=== PATIENT | female | born 1945 | race Caucasian/White ===

== ENCOUNTER → 2016-10-16 | Outpatient (REF) | payer MEDICARE, OTHER | END | disposition home or self-care (01) | LOC: M LAB REF 16:42 | PROVIDERS: ATTEND Internal Medicine | DX: R56.9 Unspecified convulsions (principal); R41.0 Disorientation, unspecified ==

== ENCOUNTER → 2016-10-17 | Outpatient (REF) | payer MEDICARE, OTHER ==
[2016-10-17 19:47] LABS: BASO % 0.6 % (0.0-1.0); EOS # 0.1 K/mm3 (0.0-0.50); EOS % 1.8 % (0.0-3.0); LARGE UNSTAINED CELL # 0.2 K/mm3 (0.0-0.4); LARGE UNSTAINED CELL % 2.4 % (0.0-4.0); LYMPH # 1.8 K/mm3 (1.5-4.5); LYMPH % 26.6 % (24.0-44.0); MEAN CORPUSCULAR HGB CONC 31.9 g/dl (32.0-36.5); MEAN CORPUSCULAR VOLUME 100.3 fl (80.0-96.0); MONO # 0.4 K/mm3 (0.0-0.8); MONO % 7.1 % (0.0-5.0); NEUTROPHILS # 3.8 K/mm3 (1.8-7.7); NEUTROPHILS % 61.4 % (36.0-66.0); PLATELET COUNT, AUTOMATED 174 k/mm3 (150-450); RED CELL DISTRIBUTION WIDTH 14.1 % (11.5-14.5); WHITE BLOOD COUNT 6.2 K/mm3 (4.0-10.0)
[2016-10-17 20:07] LABS: FOLATE > 24.0 NG/ML (>5.4); VITAMIN B12 LEVEL 409 PG/ML (247-911)
[2016-10-17 20:18] LABS: ERYTHROCYTE SEDIMENTATION RATE 45 mm/hr (0-30)
[2016-10-22 00:06] LABS: VITAMIN E LEVEL 12.6 mg/L (6.5-21.5)
== END ==
LOC: M LABNEURO 14:48
PROVIDERS: ATTEND Physician Assistant Medical
DX: R51 Headache (principal); R41.3 Other amnesia; R73.02 Impaired glucose tolerance (oral)

== ENCOUNTER → 2016-11-13 | Outpatient (REF) | payer MEDICARE, OTHER | LOC: M LAB REF 16:35 | PROVIDERS: ATTEND Nurse Practitioner Family | DX: Z01.89 Encounter for other specified special examinations (principal) ==

== ENCOUNTER → 2016-12-18 | Outpatient (REF) | payer MEDICARE, OTHER | LOC: M LAB REF 16:41 | PROVIDERS: ATTEND Nurse Practitioner Family | DX: R35.0 Frequency of micturition (principal) ==

== ENCOUNTER 2017-03-12 11:22 | Emergency (ER) | payer MEDICARE, BC, OTHER ==
[~2017-03-12] VITALS: Ht 157.5 cm; Wt 91.3 kg
[2017-03-12] MEDS ORDERED: ASPI81TA85 PO (11:42)
[2017-03-12] MEDS ORDERED: URSO300C3 (11:42)
[2017-03-12] MEDS ORDERED: TRAD5TAB (11:42)
[2017-03-12] MEDS ORDERED: METF500T13 (11:42)
[2017-03-12] MEDS ORDERED: DIVA500T3 (11:42)
[2017-03-12] MEDS ORDERED: OXYB10TA (11:42)
[2017-03-12] MEDS ORDERED: ATOR40TA75 (11:42)
[2017-03-12] MEDS ORDERED: OMEP20CA3 (11:42)
[2017-03-12] MEDS ORDERED: ASPIRIN 81 MG CHEW TABLET PO ONE ×2 (12:15→13:00)
[2017-03-12 13:06] LABS: BASO % 0.6 % (0.0-1.0); EOS # 0.2 K/mm3 (0.0-0.50); LARGE UNSTAINED CELL # 0.1 K/mm3 (0.0-0.4); LARGE UNSTAINED CELL % 1.5 % (0.0-4.0); LYMPH # 1.6 K/mm3 (1.5-4.5); LYMPH % 22.8 % (24.0-44.0); MEAN CORPUSCULAR HEMOGLOBIN 33.6 pg (27.0-33.0); MEAN CORPUSCULAR VOLUME 98.8 fl (80.0-96.0); MONO # 0.4 K/mm3 (0.0-0.8); MONO % 5.8 % (0.0-5.0); NEUTROPHILS # 4.5 K/mm3 (1.8-7.7); NEUTROPHILS % 66.2 % (36.0-66.0); PLATELET COUNT, AUTOMATED 169 k/mm3 (150-450); RED CELL DISTRIBUTION WIDTH 14.3 % (11.5-14.5); WHITE BLOOD COUNT 6.8 K/mm3 (4.0-10.0)
[2017-03-12 13:29] LABS: ANION GAP 9 MEQ/L (8-16); BLOOD UREA NITROGEN 18 MG/DL (7-18); CALCIUM LEVEL 9.1 MG/DL (8.8-10.2); CARBON DIOXIDE LEVEL 25 MEQ/L (21-32); CHLORIDE LEVEL 107 MEQ/L (98-107); CREATININE FOR GFR 1.19 MG/DL (0.55-1.02); GLOMERULAR FILTRATION RATE 47.6 (>39); GLUCOSE, FASTING 152 MG/DL (83-110); POTASSIUM SERUM 4.1 MEQ/L (3.5-5.1); SODIUM LEVEL 141 MEQ/L (136-145)
[2017-03-12] MEDS ORDERED: ISOVUE-370 76% 100ML VIAL (Q9967) As Ordered ONE (13:33)
--- NOTE | 2017-03-12 13:35 | REP ---
CHEST, PORTABLE: Comparison 08/08/2016. There is no evidence of acute infiltrate. No pleural effusion is seen. The heart is normal in size. The mediastinal silhouette is unremarkable. The visualized osseous structures are intact. IMPRESSION: No acute pulmonary disease. Signed by Mohsen Randolph MD 03/12/2017 05:08 P
--- NOTE | 2017-03-12 14:11 | REP ---
CT PULMONARY ANGIOGRAM: With IV contrast. HISTORY: Shortness of breath, chest tightness, history of pituitary tumor Comparison chest CT study is from June 25, 2007 CONTRAST DOSE: 75 mL of Isovue [address] TECHNIQUE: Helical scanning is acquired and overlapping 1.5 mm and contiguous 3 mm axial images are reformatted. In addition, a 3D work station is deployed to generate thick slab maximum intensity projection images in sagittal and coronal imaging projections. CT PULMONARY ANGIOGRAPHIC FINDINGS: There is good opacification of the pulmonary arterial tree and there is no CT evidence to suggest pulmonary embolism. Maximal intensity projection images show no filling defect or vessel cutoff to suggest a pulmonary arterial thrombus. The thoracic aorta enhances homogeneously and is normal in contour. There is no evidence of dissection or aneurysm. No hilar or mediastinal mass or adenopathy is observed. The lung jarrett are clear except for a 5 mm stable noncalcified pulmonary nodule in the right middle lobe. This is unchanged when compared with the June 25, 2007 study and is felt to be benign. No other significant pulmonary opacity is seen. No bony lesion is seen. IMPRESSION: 1. No CT evidence of pulmonary embolism. 2. No active cardiopulmonary disease. Signed by Nando Gonzales MD 03/12/2017 03:51 P
[2017-03-12 14:14] VITALS: BP 147/64
--- NOTE | 2017-03-13 18:18 | ECGEPIP ---
Stationary ECG Study [facility] - ED Test Date: 2017-03-12 Pat Name: NORBERT TORRES Department: Room: - Gender: F [employer] Operator: anu : 1945 Requested By: Ricardo Sweet Order Number: [id number] Reading MD: Nadira Prather Measurements Intervals [place] Rate: 79 P: 43 NV: 163 QRS: -9 QRSD: 78 T: 29 QT: 350 QTc: 402 Interpretive Statements SINUS RHYTHM LOW QRS VOLTAGE IN PRECORDIAL LEADS PRWP SIMILAR 08/08/16 Electronically Signed On 03-13-2017 18:18:04 EDT by Nadira Prather
== END 2017-03-12 14:46 | disposition home or self-care (01) ==
LOC: M ED 11:22
DX: R07.9 Chest pain, unspecified (principal); R06.02 Shortness of breath; E11.9 Type 2 diabetes mellitus without complications; E78.4 Other hyperlipidemia; F03.90 Unspecified dementia, unspecified severity, without behavioral disturbance, psychotic disturbance, mood disturbance, and anxiety
CPT/HCPCS: 36415; 71010; 71275; 80048; 82550; 82553; 83880; 84484; 85025; 93005; 93041; 94760; 99285; Q9967

== ENCOUNTER → 2017-03-20 | Outpatient (REF) | payer MEDICARE, OTHER ==
[~2017-03-20] MED LIST: ASPI81TA85 PO; ATOR40TA75; DIVA500T3; METF500T13; OMEP20CA3; OXYB10TA; TRAD5TAB; URSO300C3
[2017-03-20 13:25] LABS: FOLATE > 24.0 NG/ML (>5.4); VITAMIN B12 LEVEL 759 PG/ML (247-911)
[2017-03-23 08:08] LABS: VITAMIN E LEVEL 19.3 mg/L (6.5-21.5)
== END ==
LOC: M LAB REF 12:32
PROVIDERS: ATTEND Nurse Practitioner Family
DX: G62.9 Polyneuropathy, unspecified (principal)

== ENCOUNTER → 2018-09-10 | Outpatient (REF) | payer MEDICARE, OTHER ==
[~2018-09-10] MED LIST changes: -DIVA500T3; +DIVA500T94
== END ==
LOC: M LAB REF 17:47
PROVIDERS: ATTEND Internal Medicine
DX: M31.6 Other giant cell arteritis (principal)

== ENCOUNTER → 2018-09-19 | Outpatient (REF) | payer MEDICARE, OTHER | LOC: M LAB REF 15:08 | PROVIDERS: ATTEND Surgery | DX: M31.6 Other giant cell arteritis (principal) ==

== ENCOUNTER 2021-01-28 15:04 | Emergency (ER) | payer MEDICARE, BC, OTHER ==
[~2021-01-28] VITALS: Ht 162.6 cm; Wt 88.6 kg
[~2021-01-28 15:04] MED LIST changes: -ASPI81TA85 PO; +ASPI81TA86 PO; +OMEP1CAP73; -OMEP20CA3; -OXYB10TA; +OXYB10TA23
[2021-01-28] MEDS ORDERED: GLIP10TA PO (15:18)
[2021-01-28] MEDS ORDERED: MYRB25TA PO (15:18)
[2021-01-28] MEDS ORDERED: MECL-86 PO (15:18)
--- NOTE | 2021-01-28 15:36 | REP ---
INDICATION: TRAUMA COMPARISON: 03/01/2016 TECHNIQUE: Axial noncontrast images from the skull base to the thoracic inlet with coronal reformations. This CT examination was performed using the following dose reduction techniques: Automated exposure control, adjustment of mA and/or kv according to the patient's size, and use of iterative reconstruction technique. FINDINGS: Postsurgical changes involving the right hemisphere including prior craniotomy/craniectomy and underlying frontotemporal encephalomalacia as well as age-related atrophy and microvascular ischemic changes again noted and essentially unchanged. Ventricles are symmetric. No acute intracranial hemorrhage, mass or mass effect identified. No acute extra-axial fluid collection. Calvarium is stable. Sinuses and mastoid air cells are clear. Right prosthetic globe. IMPRESSION: No change from prior examination. Atrophy and postsurgical changes. No acute intracranial pathology or trauma/injury appreciated. <Electronically signed by Tae Anderson > 01/28/21 [id number]
--- NOTE | 2021-01-28 15:37 | REP ---
INDICATION: TRAUMA COMPARISON: None. TECHNIQUE: Axial noncontrast images from the skull base to the thoracic inlet with coronal and sagittal re-formations This CT examination was performed using the following dose reduction techniques: Automated exposure control, adjustment of mA and/or kv according to the patient's size, and use of iterative reconstruction technique. FINDINGS: Reversal of normal lordosis with stable alignment noted along with moderate to advanced multilevel degenerative spondylosis. No acute fracture/compression injury or subluxation. Posterior elements and spinous processes are intact. Spinal canal is patent. Paravertebral soft tissues are normal. IMPRESSION: Moderate to advanced multilevel degenerative spondylosis. No acute fracture/compression injury or subluxation. <Electronically signed by Tae Anderson > 01/28/21 153
[2021-01-28] MEDS ORDERED: ACETAMINOPHEN 500 MG TAB PO ONE (16:40)
[2021-01-28] MEDS ORDERED: LIDOCAINE 4% CREAM 5GM (LMX4) TOP ONE (16:40)
--- NOTE | 2021-01-28 17:28 | REP ---
INDICATION: fall, pt tender COMPARISON: None. TECHNIQUE: AP and lateral views of the scapula. FINDINGS: Generalized age-related changes through the scapula and shoulder. No obvious acute fracture or dislocation identified. IMPRESSION: No obvious acute fracture or dislocation identified.. <Electronically signed by Tae Anderson > 01/28/21 [id number]
[2021-01-28] MEDS ORDERED: ANEC4CRE3 TOP (17:35)
[2021-01-28 17:59] VITALS: BP 147/72
== END 2021-01-28 18:03 | disposition home or self-care (01) ==
LOC: M ED 15:04
DX: S16.1XXA Strain of muscle, fascia and tendon at neck level, initial encounter (principal); S20.229A Contusion of unspecified back wall of thorax, initial encounter; W18.39XA Other fall on same level, initial encounter; Y92.018 Other place in single-family (private) house as the place of occurrence of the external cause; E11.9 Type 2 diabetes mellitus without complications; F03.90 Unspecified dementia, unspecified severity, without behavioral disturbance, psychotic disturbance, mood disturbance, and anxiety; D43.2 Neoplasm of uncertain behavior of brain, unspecified; Z79.899 Other long term (current) drug therapy; Z88.1 Allergy status to other antibiotic agents; Z88.2 Allergy status to sulfonamides; Z88.5 Allergy status to narcotic agent; Z88.8 Allergy status to other drugs, medicaments and biological substances; Z91.048 Other nonmedicinal substance allergy status

== ENCOUNTER → 2021-08-11 | Outpatient (CLI) | payer MEDICARE, BC, OTHER ==
[~2021-08-11] MED LIST changes: +ANEC4CRE3 TOP; +GLIP10TA PO; +MECL-86 PO; +MYRB25TA PO
--- NOTE | 2021-08-11 13:19 | REP ---
INDICATION: LOW BACK PAIN. COMPARISON: 03/22/2012. TECHNIQUE: Five views lumbosacral spine. FINDINGS: There is no compression fracture. There is minimal stable anterolisthesis of L4 on L5 which appears to be due to posterior facet arthropathy. There is normal lumbar lordosis. There is mild diffuse spurring. There is mild disc space narrowing and subchondral sclerosis at all levels. There is sclerosis and spurring at the posterior facet joints, particularly at the inferior aspect of the lumbar spine. Posterior elements are intact. Epidural catheter tubing is again noted on the right. IMPRESSION: Diffuse degenerative changes appears similar to the prior study. No fracture or dislocation. <Electronically signed by Mohsen Randolph > 08/11/21 [id number]
== END ==
LOC: M WUC 10:38
PROVIDERS: ATTEND Internal Medicine
DX: M54.50 Low back pain, unspecified (principal); M51.36 Other intervertebral disc degeneration, lumbar region

== ENCOUNTER → 2022-06-27 | Outpatient (CLI) | payer MEDICARE, BC, OTHER | LOC: M RAD 09:18 | PROVIDERS: ATTEND Psychiatry & Neurology Neurology | DX: R41.3 Other amnesia (principal) ==

== ENCOUNTER 2022-08-06 16:37 | Inpatient (IN) | payer MEDICARE, BC, OTHER ==
[~2022-08-06] VITALS: Ht 162.6 cm; Wt 86.5 kg
[~2022-08-06 16:37] MED LIST changes: -ATOR40TA75; +ATOR40TA75 PO; -TRAD5TAB; +TRAD5TAB PO; -URSO300C3; +URSO300C3 PO
[2022-08-06] MEDS ORDERED: hydrALAZINE 20MG/ML 1ML VIAL IV ONE (17:10)
[2022-08-06] MEDS ORDERED: ACETAMINOPHEN 650MG SUPP PR ONE (17:10)
[2022-08-06] MEDS ORDERED: NS 1,000 ML IV ONE (17:10)
[2022-08-06 17:34] LABS: BASO # 0.1 10^3/uL (0.0-0.2); BASO % 0.7 % (0.0-1.0); EOS # 0.1 10^3/uL (0.0-0.5); EOS % 0.7 % (0.0-3.0); HEMATOCRIT 44.2 % (36.0-47.0); HEMOGLOBIN 14.2 g/dl (12.0-15.5); LYMPH # 0.6 10^3/uL (1.5-5.0); LYMPH % 6.5 % (24.0-44.0); MEAN CORPUSCULAR HEMOGLOBIN 31.5 pg (27.0-33.0); MEAN CORPUSCULAR HGB CONC 32.1 g/dl (32.0-36.5); MONO # 1.1 10^3/uL (0.0-0.8); MONO % 10.6 % (2.0-8.0); PLATELET COUNT, AUTOMATED 267 10^3/uL (150-450); RED BLOOD COUNT 4.51 10^6/uL (4.00-5.40); WHITE BLOOD COUNT 9.9 10^3/uL (4.0-10.0)
[2022-08-06 17:36] LABS: VENOUS BASE EXCESS -3.6 (-2.0-2.0); VENOUS HCO3 24.3 MEQ/L (23.0-27.0); VENOUS O2 SATURATION 67.4 % (60.0-80.0); VENOUS PARTIAL PRESSURE CO2 54.9 mmHg (38.0-50.0); VENOUS PARTIAL PRESSURE O2 36.5 mmHg (30.0-50.0); VENOUS PH 7.264 UNITS (7.330-7.430); VENOUS STANDARD HCO3 20.8 MEQ/L
[2022-08-06 17:57] LABS: ETHYL ALCOHOL (ETHANOL) 0.003 % (0.000-0.010)
[2022-08-06 17:58] LABS: ACETAMINOPHEN LEVEL < 2.0 UG/ML (10.0-20.0); BILIRUBIN,DIRECT 0.2 MG/DL (<0.4); SALICYLATE LEVEL < 3.0 MG/DL (<30)
[2022-08-06 18:06] LABS: ALBUMIN 3.6 G/DL (3.2-5.2); ALKALINE PHOSPHATASE 280 U/L (46-116); ALT/SGPT 61 U/L (7.0-40); AST/SGOT 65 U/L (<34); BILIRUBIN,TOTAL 0.4 MG/DL (0.3-1.2); BLOOD UREA NITROGEN 28 MG/DL (9-23); CALCIUM LEVEL 10.1 MG/DL (8.3-10.6); CARBON DIOXIDE LEVEL 23 MMOL/L (20-31); CHLORIDE LEVEL 99 MMOL/L (98-107); CREATININE FOR GFR 1.68 MG/DL (0.55-1.30); GLOMERULAR FILTRATION RATE 31.5 (>39); GLUCOSE, FASTING 220 MG/DL (74-106); POTASSIUM SERUM 4.8 MMOL/L (3.5-5.1); SODIUM LEVEL 133 MMOL/L (136-145); TOTAL PROTEIN 8.6 G/DL (5.7-8.2)
[2022-08-06 18:25] LABS: ABG BASE EXCESS -2.7 (-2.0-2.0); ABG HCO3 20.2 MEQ/L (22.0-26.0); ABG O2 SATURATION 96.4 % (95.0-99.0); ABG PARTIAL PRESSURE CO2 30.2 mmHg (35.0-45.0); ABG PARTIAL PRESSURE O2 77.8 mmHg (75.0-100.0); ABG STANDARD HCO3 22.2 MEQ/L (22.0-26.0); ABG TOTAL CO2 21.2 MEQ/L (23.0-31.0); ABG pH (ARTERIAL) 7.444 UNITS (7.350-7.450)
[2022-08-06 18:27] LABS: THYROID STIMULATING HORMONE 0.997 uIU/ML (0.55-4.78)
[2022-08-06 18:44] LABS: AMPHETAMINES LEVEL URINE NEGATIVE (NEGATIVE); BARBITURATES URINE NEGATIVE (NEGATIVE); BENZODIAZEPINES URINE NEGATIVE (NEGATIVE); COCAINE METABOLITE URINE NEGATIVE (NEGATIVE); METHADONE URINE NEGATIVE (NEGATIVE); OPIATES URINE NEGATIVE (NEGATIVE)
[2022-08-06 18:45] LABS: CANNABINOIDS URINE NEGATIVE (NEGATIVE); PHENCYCLIDINE URINE NEGATIVE (NEGATIVE)
[2022-08-06] MEDS ORDERED: LABETALOL 100MG/20ML VIAL IV STA (19:09)
[2022-08-06] MEDS ORDERED: OSELTAMIVIR 6 MG/ML SUSP PO ONE (20:05)
[2022-08-06] MEDS ORDERED: ACET650T15 PO (21:22)
[2022-08-06] MEDS ORDERED: LANTINJ4 INJ (21:22)
[2022-08-06] MEDS ORDERED: VITMTA PO (21:22)
[2022-08-06] MEDS ORDERED: PEPC10TA6 PO (21:22)
[2022-08-06] MEDS ORDERED: DULO60CA35 PO (21:22)
[2022-08-06] MEDS ORDERED: HOME MED LIST COMPLETE! XX SCH (21:25)
[2022-08-06] MEDS ORDERED: hydrALAZINE 20MG/ML 1ML VIAL IV PRN (22:20)
[2022-08-06] MEDS ORDERED: NS 1,000 ML IV SCH (22:20)
[2022-08-06] MEDS ORDERED: UNRESOLVED CLARIFICATION ENTRY XX STA (22:35)
[2022-08-07] MEDS: ALBUTEROL SULFATE 2.5 MG/0.5 ML INH NEB SOLN INH SCH ×4 (01:32→16:00)
[2022-08-07] MEDS: ACETAMINOPHEN TAB 650MG DOSE (2X325MG) PO PRN ×2 (01:55→08:51)
[2022-08-07 02:15] VITALS: BP 111/73
[2022-08-07] MEDS ORDERED: ACETAMINOPHEN 650MG SUPP PR PRN (02:40)
[2022-08-07] MEDS ORDERED: cloNIDine 0.1MG TABLET PO ONE (03:00)
[2022-08-07 05:52] VITALS: BP 110/74
[2022-08-07 06:36] LABS: CALCIUM LEVEL 8.9 MG/DL (8.3-10.6); CREATININE FOR GFR 1.53 MG/DL (0.55-1.30); GLOMERULAR FILTRATION RATE 35.1 (>39); POTASSIUM SERUM 4.4 MMOL/L (3.5-5.1)
[2022-08-07] MEDS: OSELTAMIVIR PHOSPHATE 30MG CAPSULE PO SCH ×2 (08:50→22:15)
[2022-08-07] MEDS: HEPARIN SOD (PORCINE) 5000UNITS/ML 1ML VIAL/SYRINGE SC SCH ×2 (08:50→22:19)
[2022-08-07 08:56] VITALS: BP 138/77
[2022-08-07] MEDS: NS 1,000 ML IV SCH ×2 (11:20→22:19)
[2022-08-07] MEDS ORDERED: LIDOCAINE 1% MDV 20ML VIAL As Ordered ONE (14:09)
[2022-08-07 14:52] VITALS: BP 127/65
[2022-08-07] MEDS ORDERED: SODIUM CHLORIDE 0.9% INJ 10 ML SYR IV PRN (15:00)
[2022-08-07] MEDS: SODIUM CHLORIDE 0.9% INJ 10 ML SYR IV SCH (16:40)
[2022-08-07] MEDS ORDERED: DULoxetine 30MG CAPSULE (CYMBALTA) PO SCH (21:00)
[2022-08-07 22:00] VITALS: BP 123/67
[2022-08-07 22:19] VITALS: BP 131/62
[2022-08-08] MEDS ORDERED: NS 1,000 ML IV SCH (02:50)
[2022-08-08] MEDS: SODIUM CHLORIDE 0.9% INJ 10 ML SYR IV SCH (05:37)
[2022-08-08 06:00] VITALS: BP 129/64
[2022-08-08] MEDS: ALBUTEROL SULFATE 2.5 MG/0.5 ML INH NEB SOLN INH SCH ×2 (06:03)
[2022-08-08 06:11] LABS: BASO # 0.1 10^3/uL (0.0-0.2); BASO % 0.9 % (0.0-1.0); EOS % 0.3 % (0.0-3.0); HEMATOCRIT 42.8 % (36.0-47.0); HEMOGLOBIN 13.4 g/dl (12.0-15.5); LYMPH # 1.5 10^3/uL (1.5-5.0); LYMPH % 26.4 % (24.0-44.0); MEAN CORPUSCULAR HEMOGLOBIN 31.2 pg (27.0-33.0); MEAN CORPUSCULAR HGB CONC 31.3 g/dl (32.0-36.5); MEAN CORPUSCULAR VOLUME 99.5 fl (80.0-96.0); MONO # 0.7 10^3/uL (0.0-0.8); MONO % 12.2 % (2.0-8.0); NEUTROPHILS # 3.4 10^3/uL (1.5-8.5); NEUTROPHILS % 59.9 % (36.0-66.0); PLATELET COUNT, AUTOMATED 234 10^3/uL (150-450); WHITE BLOOD COUNT 5.7 10^3/uL (4.0-10.0)
[2022-08-08 06:46] LABS: CALCIUM LEVEL 8.2 MG/DL (8.3-10.6); CREATININE FOR GFR 1.34 MG/DL (0.55-1.30); GLOMERULAR FILTRATION RATE 40.9 (>39); POTASSIUM SERUM 4.2 MMOL/L (3.5-5.1)
[2022-08-08] MEDS: HEPARIN SOD (PORCINE) 5000UNITS/ML 1ML VIAL/SYRINGE SC SCH (09:37)
[2022-08-08] MEDS: OSELTAMIVIR PHOSPHATE 30MG CAPSULE PO SCH (09:38)
[2022-08-08] MEDS ORDERED: AMLO1TAB25 PO (12:32)
[2022-08-08] MEDS ORDERED: OSEL30CA PO (12:32)
[2022-08-08] MEDS ORDERED: ACET1TAB55 PO (12:32)
== END 2022-08-08 14:07 | disposition home or self-care (01) | DRG 193 ==
LOC: M ED 16:37 → M ED INP 22:20 → ENRESERV 08-07 00:07 → M MSPAV 08-07 02:15
PROVIDERS: ADMIT Internal Medicine; ATTEND Family Medicine
PROC: 05HB33Z Insertion of Infusion Device into Right Basilic Vein, Percutaneous Approach (ICD-10-PCS; principal; 2022-08-07 13:00)
DX: J09.X2 Influenza due to identified novel influenza A virus with other respiratory manifestations (principal); G93.41 Metabolic encephalopathy; E87.1 Hypo-osmolality and hyponatremia; F03.90 Unspecified dementia, unspecified severity, without behavioral disturbance, psychotic disturbance, mood disturbance, and anxiety; R26.89 Other abnormalities of gait and mobility; E11.22 Type 2 diabetes mellitus with diabetic chronic kidney disease; N18.30 Chronic kidney disease, stage 3 unspecified; F32.A Depression, unspecified; E78.5 Hyperlipidemia, unspecified; Z86.73 Personal history of transient ischemic attack (TIA), and cerebral infarction without residual deficits; I12.9 Hypertensive chronic kidney disease with stage 1 through stage 4 chronic kidney disease, or unspecified chronic kidney disease; Z79.4 Long term (current) use of insulin; Z79.899 Other long term (current) drug therapy; Z88.1 Allergy status to other antibiotic agents; Z88.2 Allergy status to sulfonamides; Z88.5 Allergy status to narcotic agent; Z88.8 Allergy status to other drugs, medicaments and biological substances; Z91.048 Other nonmedicinal substance allergy status; Z20.822 Contact with and (suspected) exposure to COVID-19; I16.0 Hypertensive urgency; K74.3 Primary biliary cirrhosis; K59.00 Constipation, unspecified

== ENCOUNTER → 2023-05-11 | Outpatient (CLI) | payer MEDICARE, BC, OTHER ==
[~2023-05-11] MED LIST changes: +ACET1TAB55 PO; +ACET650T15 PO; +AMLO1TAB25 PO; +DULO60CA35 PO; +LANTINJ4 INJ; +OSEL30CA PO; +PEPC10TA6 PO; +VITMTA PO
== END ==
LOC: M WHC 10:17
PROVIDERS: ATTEND Internal Medicine
DX: Z12.31 Encounter for screening mammogram for malignant neoplasm of breast (principal)

== ENCOUNTER → 2024-01-08 | Outpatient (REF) | payer MEDICARE, BC, OTHER | LOC: M LAB REF 16:17 | PROVIDERS: ATTEND Internal Medicine | DX: N39.0 Urinary tract infection, site not specified (principal) ==

== ENCOUNTER → 2024-03-11 | Outpatient (REF) | payer MEDICARE, BC, OTHER ==
[2024-03-12 13:29] LABS: URIC ACID 4.2 MG/DL (3.1-7.8)
[2024-03-12 13:32] LABS: PHOSPHORUS LEVEL 4.2 MG/DL (2.4-5.1)
== END ==
LOC: M LAB REF 12:15
PROVIDERS: ATTEND Internal Medicine
DX: N18.4 Chronic kidney disease, stage 4 (severe) (principal)

== ENCOUNTER → 2024-05-13 | Outpatient (CLI) | payer MEDICARE, BC | LOC: M WHC 14:39 | PROVIDERS: ATTEND Internal Medicine | DX: Z12.31 Encounter for screening mammogram for malignant neoplasm of breast (principal) ==

== ENCOUNTER → 2024-08-13 | Outpatient (REF) | payer MEDICARE, BC ==
[2024-08-13 17:29] LABS: URIC ACID 3.8 MG/DL (3.1-7.8)
[2024-08-13 17:32] LABS: PHOSPHORUS LEVEL 3.5 MG/DL (2.4-5.1); PTH INTACT 29.8 PG/ML (18.5-88.0)
== END ==
LOC: M LAB REF 16:20
PROVIDERS: ATTEND Internal Medicine
DX: N18.4 Chronic kidney disease, stage 4 (severe) (principal)

== ENCOUNTER → 2025-01-08 | Outpatient (CLI) | payer MEDICARE, BC | LOC: M RAD 09:58 | PROVIDERS: ATTEND Internal Medicine | DX: K74.3 Primary biliary cirrhosis (principal) ==

== ENCOUNTER → 2025-04-21 | Outpatient (REF) | payer MEDICARE, BC ==
[~2025-04-21] MED LIST changes: +ACET-1515 PO; -ACET650T15 PO; +DIVA-41; -DIVA500T94
[2025-04-21 19:03] LABS: PHOSPHORUS LEVEL 4.2 MG/DL (2.4-5.1)
[2025-04-21 19:07] LABS: PTH INTACT 24.6 PG/ML (18.5-88.0)
== END ==
LOC: M LAB REF 17:43
PROVIDERS: ATTEND Internal Medicine
DX: N18.4 Chronic kidney disease, stage 4 (severe) (principal); K74.3 Primary biliary cirrhosis

== ENCOUNTER → 2025-05-15 | Outpatient (CLI) | payer MEDICARE, BC | LOC: M WHC 12:14 | PROVIDERS: ATTEND Internal Medicine | DX: Z12.31 Encounter for screening mammogram for malignant neoplasm of breast (principal); R92.323 Mammographic fibroglandular density, bilateral breasts ==